=== PATIENT | male | born 1970 | race Caucasian/White ===

== ENCOUNTER 2017-01-16 22:41 | Emergency (ER) | payer OTHER ==
[~2017-01-16] VITALS: Ht 203.2 cm; Wt 158.2 kg
[~2017-01-16 22:41] MED LIST: ATEN25 PO; GEMF600T3 PO; HYDR25TA PO
[2017-01-16] MEDS ORDERED: CEPH500C2 PO (23:58)
[2017-01-16] MEDS ORDERED: HYDR-4061 PO (23:58)
[2017-01-16] MEDS ORDERED: NAPR-58 PO (23:58)
[2017-01-17 00:20] LABS: BASOPHILS % (AUTO) 0.6 % (0.0-2.0); HEMATOCRIT 45.7 % (41-53); HEMOGLOBIN 15.9 g/dL (13.5-17.5); LYMPHOCYTES # (AUTO) 2.6 K/uL (1.0-4.8); LYMPHOCYTES % (AUTO) 30.1 % (22.0-44.0); MEAN CORPUSCULAR HGB CONC 34.8 G/dL (31.0-37.0); MEAN CORPUSCULAR VOLUME 92 fL (80-100); MONOCYTES # (AUTO) 0.9 K/uL (0.1-1.0); MONOCYTES % (AUTO) 10.1 % (2.0-9.0); NEUTROPHILS # (AUTO) 4.9 K/uL (1.8-7.7); NEUTROPHILS % (AUTO) 56.2 % (40.0-70.0); PLATELET COUNT (AUTO) 236 K/uL (150-450); RED BLOOD CELL COUNT(AUTO) 4.96 MIL/uL (4.50-5.90); WHITE BLOOD COUNT (AUTO) 8.7 K/uL (4.5-11.0)
[2017-01-17 00:40] LABS: ANION GAP 6 mmol/L (8-16); CALCIUM, TOTAL 9.7 mg/dL (8.8-10.5); CARBON DIOXIDE 28 mmol/L (22-29); CHLORIDE 102 mmol/L (98-107); CREATININE 0.96 mg/dL (0.60-1.30); GLOMERULAR FILTR. RATE CALC > 60 mL/min (>60); POTASSIUM 3.5 mmol/L (3.5-5.1); SODIUM SERUM 136 mmol/L (136-145); UREA NITROGEN, BLOOD 18 mg/dL (7-18)
[2017-01-17 00:46] LABS: ALANINE AMINOTRANSFERASE 58 U/L (12-78); ASPARTATE AMINOTRANSFERASE 23 U/L (15-37); BILIRUBIN,TOTAL 0.5 mg/dL (0.1-1.0); TOTAL PROTEIN, SERUM 7.3 g/dL (6.4-8.2)
[2017-01-17 00:48] LABS: LACTIC ACID 1.1 mmol/L (0.4-2.0)
[2017-01-17 01:08] LABS: B-TYPE NATRIURETIC PEPTIDE 5 pg/mL (0-100)
[2017-01-17] MEDS ORDERED: KETOROLAC TROMETHAMINE 60 MG/2 ML VIAL IM ONE (04:30)
[2017-01-17 05:18] LABS: URIC ACID 7.3 mg/dL (2.6-7.2)
[2017-01-17 05:35] VITALS: BP 141/96
== END 2017-01-17 05:46 | disposition home or self-care (01) ==
LOC: EMS 01-17 01:49
DX: S93.602A Unspecified sprain of left foot, initial encounter (principal); L03.116 Cellulitis of left lower limb; E78.00 Pure hypercholesterolemia, unspecified; I10 Essential (primary) hypertension
CPT/HCPCS: 36415; 73630; 80053; 83605; 83880; 84550; 85025; 93971; 96372; 99285; J1885

== ENCOUNTER 2018-03-12 16:35 | Emergency (ER) | payer OTHER ==
[~2018-03-12] VITALS: Ht 198.1 cm; Wt 158.1 kg
[~2018-03-12 16:35] MED LIST changes: -ATEN25 PO; +ATEN25TA PO; +CEPH500C2 PO; -GEMF600T3 PO; +GEMF600T5 PO; +HYDR-4061 PO; +NAPR-58 PO
[2018-03-12 17:12] VITALS: BP 152/82
[2018-03-12] MEDS ORDERED: BACITRACIN 0.9 GM PACKET OINTMENT TP ONE (17:15)
[2018-03-12] MEDS ORDERED: POVIDONE-IODINE 10% 15 ML SOLUTION UD TP ONE (17:15)
[2018-03-12] MEDS ORDERED: IBUPROFEN 800 MG TABLET PO ONE (17:15)
[2018-03-12] MEDS ORDERED: PERTUSS(ACELL),DIPH,TET VAC/PF 0.5 ML VIAL IM ONE (17:15)
== END 2018-03-12 17:47 | disposition home or self-care (01) ==
LOC: EMS 16:36
DX: S91.331A Puncture wound without foreign body, right foot, initial encounter (principal); E78.00 Pure hypercholesterolemia, unspecified; I10 Essential (primary) hypertension; W22.8XXA Striking against or struck by other objects, initial encounter; Y93.89 Activity, other specified; Y92.096 Garden or yard of other non-institutional residence as the place of occurrence of the external cause; Y99.0 Civilian activity done for income or pay
CPT/HCPCS: 90471; 90715

== ENCOUNTER 2018-11-02 14:23 | Emergency (ER) | payer OTHER ==
[~2018-11-02] VITALS: Ht 203.2 cm; Wt 157.7 kg
[~2018-11-02 14:23] MED LIST changes: -CEPH500C2 PO; -NAPR-58 PO
[2018-11-02] MEDS ORDERED: OMEG-50 PO (14:34)
[2018-11-02] MEDS ORDERED: LOSA25TA41 PO (14:34)
[2018-11-02] MEDS ORDERED: CETI10TA59 PO (14:34)
[2018-11-02] MEDS ORDERED: VITAD1000 PO (14:34)
[2018-11-02] MEDS ORDERED: HYDROCODONE/ACETAMINOPHEN 5-325 MG TABLET PO ONE (16:00)
[2018-11-02 16:32] LABS: BASOPHILS % (AUTO) 0.8 % (0.0-2.0); EOSINOPHILS % (AUTO) 1.3 % (1.0-6.0); HEMOGLOBIN 15.3 g/dL (13.5-17.5); LYMPHOCYTES # (AUTO) 1.9 K/uL (1.0-4.8); LYMPHOCYTES % (AUTO) 18.4 % (22.0-44.0); MEAN CORPUSCULAR HEMOGLOBIN 31.1 pg (26.0-34.0); MEAN CORPUSCULAR VOLUME 92 fL (80-100); MONOCYTES # (AUTO) 1.1 K/uL (0.1-1.0); MONOCYTES % (AUTO) 10.5 % (2.0-9.0); NEUTROPHILS # (AUTO) 7.2 K/uL (1.8-7.7); PLATELET COUNT (AUTO) 228 K/uL (150-450); RED BLOOD CELL COUNT(AUTO) 4.91 MIL/uL (4.50-5.90); RED CELL DISTRIBUTION WIDTH 13.5 % (11.5-14.5)
[2018-11-02 16:47] LABS: ANION GAP 5 mmol/L (8-16); CALCIUM, TOTAL 10.3 mg/dL (8.8-10.5); CARBON DIOXIDE 28 mmol/L (22-29); CHLORIDE 102 mmol/L (98-107); CREATININE 1.03 mg/dL (0.60-1.30); GLOMERULAR FILTR. RATE CALC > 60 mL/min (>60); GLUCOSE,RANDOM 96 mg/dL (70-110); POTASSIUM 3.9 mmol/L (3.5-5.1); SODIUM SERUM 135 mmol/L (136-145); UREA NITROGEN, BLOOD 21 mg/dL (7-18)
[2018-11-02 16:54] LABS: ALANINE AMINOTRANSFERASE 47 U/L (12-78); ALKALINE PHOSPHATASE 74 U/L (46-116); ASPARTATE AMINOTRANSFERASE 29 U/L (15-37); BILIRUBIN,TOTAL 0.9 mg/dL (0.1-1.0); TOTAL PROTEIN, SERUM 7.8 g/dL (6.4-8.2)
[2018-11-02 17:06] VITALS: BP 136/73
[2018-11-02] MEDS ORDERED: CefTRIAXone SODIUM 1 GM/VIAL IM ONE (17:15)
[2018-11-02] MEDS ORDERED: LIDOCAINE/PF 1% 2 ML VIAL IM ONE (17:15)
== END 2018-11-02 17:56 | disposition home or self-care (01) ==
LOC: EMS 14:24
DX: L03.116 Cellulitis of left lower limb (principal); I10 Essential (primary) hypertension; E78.00 Pure hypercholesterolemia, unspecified; Z79.899 Other long term (current) drug therapy
CPT/HCPCS: 36415; 80053; 85025; 93971; 96372; 99284; J0696; J3490

== ENCOUNTER 2018-11-05 17:46 | Emergency (ER) | payer OTHER ==
[~2018-11-05] VITALS: Ht 203.2 cm; Wt 157.7 kg
[~2018-11-05 17:46] MED LIST changes: +CETI10TA59 PO; -HYDR-4061 PO; +LOSA25TA41 PO; +OMEG-50 PO; +VITAD1000 PO
[2018-11-05] MEDS ORDERED: CETI10TA59 PO (18:08)
[2018-11-05] MEDS ORDERED: ASPI81 PO (18:11)
[2018-11-05 19:31] VITALS: BP 135/71
== END 2018-11-05 19:50 | disposition home or self-care (01) ==
LOC: EMS 17:47
DX: L03.116 Cellulitis of left lower limb (principal); I10 Essential (primary) hypertension; E78.00 Pure hypercholesterolemia, unspecified; Z79.82 Long term (current) use of aspirin; Z79.899 Other long term (current) drug therapy

== ENCOUNTER 2019-08-22 21:22 | Emergency (ER) | payer MEDICAID, OTHER ==
[~2019-08-22] VITALS: Ht 203.2 cm; Wt 159.1 kg
[~2019-08-22 21:22] MED LIST changes: +ASPI-728 PO; +CHOL100018 PO; +HYDR-1475 PO; -HYDR25TA PO; -LOSA25TA41 PO; +LOSA25TA71 PO; -VITAD1000 PO
[2019-08-22] MEDS ORDERED: NAPR250T4 PO (21:27)
[2019-08-22] MEDS ORDERED: KETOROLAC TROMETHAMINE 60 MG/2 ML VIAL IM ONE (23:15)
[2019-08-22] MEDS ORDERED: CefTRIAXone SODIUM 1 GM/VIAL IM ONE (23:15)
[2019-08-22] MEDS ORDERED: LIDOCAINE 1% 10 ML VIAL INJ ONE (23:15)
[2019-08-22] MEDS ORDERED: LIDOCAINE/PF 1% 2 ML VIAL IM ONE (23:15)
[2019-08-23] MEDS ORDERED: BACITRACIN 0.9 GM PACKET OINTMENT TP ONE
[2019-08-23 00:16] VITALS: BP 151/85
== END 2019-08-23 01:54 | disposition home or self-care (01) ==
LOC: EMS 21:22
DX: L03.032 Cellulitis of left toe (principal); I10 Essential (primary) hypertension; E78.00 Pure hypercholesterolemia, unspecified; Z79.82 Long term (current) use of aspirin; Z79.899 Other long term (current) drug therapy
CPT/HCPCS: 10160; 87070; 96372; 99284; J0696; J1885; J3490 ×2; 87205